=== PATIENT | male | born 1965 | race Caucasian/White ===

== ENCOUNTER 2024-10-23 14:03 | Emergency (ER) | payer OTHER, SELFPAY ==
[2024-10-23 14:10] VITALS: BP 113/77; PULSE 82; RESP 16; TEMP 36.4; O2SAT 99; BMI 25.8
[2024-10-23] MEDS: tetanus-dipt-pertussis 0.5 mL SDV IM (15:29)
--- NOTE | 2024-10-23 15:34 | W.ED.WOUNDLC ---
HPI - Wound/Laceration General: Chief Complaint: Wound/Laceration Stated Complaint: lft hand injury - cut between thumb and index Time Seen by Provider: 10/23/24 15:17 Source: patient Mode of arrival: ambulatory Limitations: no limitations History of Present Illness: 59-year-old male who states that he lacerated his left hand with a piece of metal just prior to arrival he has a roughly 3 cm laceration in the webspace between his thumb index finger he denies any other injuries rates his pain a 2 out of 10 Associated symptoms: Denies chills, fever(s), nausea or vomiting Related Data Allergies Allergy/AdvReac Type Severity Reaction Status Date / Time No Known Allergies Allergy Verified 10/23/24 14:16 Review of Systems Const: Denies: fever(s), chills, body aches or change in appetite ENMT: Denies: throat pain or dental pain Card: Denies: chest pain Resp: Denies: dyspnea GI: Denies: abdominal pain, nausea, vomiting or diarrhea Musc: Reports: extremity pain; Denies: neck pain or back pain Skin/Breast: Denies: rash Neuro: Denies: headache(s) Physical Exam Const: COMMON NORMALS: no acute distress, patient oriented x3 and healthy appearing HENMT: COMMON NORMALS: normocephalic and atraumatic HEAD & SCALP: normocephalic and atraumatic Eye: COMMON NORMALS: conjunctivae normal CONJUNCTIVA: Yes conjunctivae normal Neck/C-Spine: COMMON NORMALS: full ROM and supple Chest: COMMONS NORMALS: normal inspection of the chest Resp: COMMON NORMALS: normal respiratory effort Cardio: COMMON NORMALS: regular rate RATE: regular rate Extremity: NARRATIVE EXTREMITY EXAM: 3 similar laceration webspace between thumb and index finger no tendon involvement has full range of motion of his thumb Neuro: COMMON NORMALS: patient oriented x3, moves all extremities and no focal motor deficits Psych: COMMON NORMALS: mental status grossly normal, Normal thought process present and cooperative THOUGHT PROCESS: Normal thought process present Skin: COMMON NORMALS: no rashes or lesions noted GENERAL SKIN EXAM: no rashes or lesions noted Procedures Laceration Laceration 1: Site: hand Side (If applicable): left Size (cm): 3 Description: linear Depth: simple, single layer Local Anesthetic: lidocaine 1% Amount of anesthesia used (mL): 8 Pre-repair: wound explored, irrigated extensively and deep structures intact Skin layer closed with: nylon Size (cm): 5-0 Number of sutures: 4 Technique: simple, interrupted Course Vital Signs: Vital signs: Vital Signs Temperature 97.6 F 10/23/24 14:10 Pulse Rate 82 10/23/24 14:10 Respiratory Rate 16 10/23/24 14:10 Blood Pressure 113/77 10/23/24 14:10 Pulse Oximetry 99 10/23/24 14:10 Oxygen Delivery Me thod Room Air 10/23/24 14:10 MDM - Wound/Laceration Medical Decision Making Patient presents here with laceration webspace to his left thumb did repair laceration he stable for discharge suture removal in 7 days return if worsening Medical Records I reviewed the patient's medical records. No radiology studies performed this visit Discharge Plan Discharge Patient Disposition: Home Clinical Impression: Laceration Condition: Stable Discharge Orders: Discharge ED (Routine); Ordered 10/23/24 Ordered By: Sahil Bronson Referrals: Yumiko Mckeon FNP [Family Provider, Nurse Practitioner] Discharge Diet: Advance as tolerated Discharge Activity: Resume usual activity Patient Instructions: Care For Your Stitches (ED), Laceration (ED) Activity Restrictions/Additional Instructions: suture removal in 7 days Print Language: [place] Coding Level of Care Code ED Waiter/Waitress Head for Marcella Spears
== END 2024-10-23 15:51 | disposition home or self-care (01) ==
PROVIDERS: Emergency Provider Emergency Medicine; Family Provider Nurse Practitioner Family
DX: S61.412A Laceration without foreign body of left hand, initial encounter (principal); W26.8XXA Contact with other sharp object(s), not elsewhere classified, initial encounter
CPT/HCPCS: 12002; 90715; 99283

== ENCOUNTER → 2025-04-21 10:14 | Outpatient (BNVA) | payer OTHER, SELFPAY | PROVIDERS: Family Provider Nurse Practitioner Family; Visit Provider Orthopaedic Surgery | DX: M25.512 Pain in left shoulder (principal) | CPT/HCPCS: 20610; 73030; 99204; J3301; J3490; J9999 ==

== ENCOUNTER → 2025-05-19 10:38 | Outpatient (BNVA) | payer OTHER, SELFPAY | PROVIDERS: Family Provider Nurse Practitioner Family; Visit Provider Orthopaedic Surgery | DX: M25.512 Pain in left shoulder (principal) | CPT/HCPCS: 99213 ==